=== PATIENT | male | born 1985 | race Caucasian/White ===

== ENCOUNTER 2017-01-25 20:33 | Emergency (ER) | payer OTHER ==
[~2017-01-25] VITALS: Ht 170.2 cm; Wt 78.5 kg
[2017-01-25 20:39] VITALS: Ht 170.2 cm; Wt 78.5 kg
[2017-01-25] MEDS ORDERED: FAMOTIDINE 20 MG INJ IV STA (21:38)
[2017-01-25] MEDS ORDERED: SOD CHLORIDE 0.9% 1,000 ML IV STA (21:38)
[2017-01-25] MEDS ORDERED: ONDANSETRON 4 MG INJ IV STA (21:38)
[2017-01-25] MEDS ORDERED: ACETAMINOPHEN 500 MG TAB PO STA (21:38)
[2017-01-25 22:03] LABS: ADD SCAN DIFF NO
[2017-01-25 22:05] LABS: BASOPHILS % 0.2 % (0.0-2.0); EOSINOPHILS % 0.2 % (0.0-7.0); HEMATOCRIT 45.1 % (42.0-52.0); HEMOGLOBIN 15.6 g/dl (14.0-18.0); LYMPHOCYTES # 0.8 10^3/ul (0.8-2.9); LYMPHOCYTES % 9.4 % (15.0-51.0); MEAN CORPUSCULAR HGB CONC 34.6 g/dl (32.0-37.0); MEAN CORPUSCULAR VOLUME 89.7 fl (82.0-101.0); MEAN PLATELET VOLUME 10.5 fl (7.4-10.4); MONOCYTE # 0.4 10^3/ul (0.3-0.9); MONOCYTES % 5.1 % (0.0-11.0); NEUTROPHIL # 7.2 10^3/ul (1.6-7.5); NEUTROPHILS % 84.5 % (39.0-77.0); PLATELET COUNT 176 10^3/UL (140-415); RED BLOOD COUNT 5.03 10^6/ul (4.70-6.10); WHITE BLOOD COUNT 8.6 10^3/ul (4.8-10.8)
[2017-01-25 22:06] LABS: ADD UMIC NO; URINE BILIRUBIN (Dip) NEGATIVE (NEGATIVE); URINE BLOOD (Dip) NEGATIVE (NEGATIVE); URINE COLOR LT. YELLOW (YELLOW); URINE GLUCOSE (Dip) NEGATIVE (NEGATIVE); URINE KETONES (Dip) NEGATIVE (NEGATIVE); URINE LEUKOCYTE ESTERASE (Dip) NEGATIVE (NEGATIVE); URINE NITRITE (Dip) NEGATIVE (NEGATIVE); URINE TOTAL PROTEIN (Dip) NEGATIVE (NEGATIVE); URINE UROBILINOGEN (Dip) 0.2 E.U./dL (0.1-1.0)
[2017-01-25 22:14] LABS: POTASSIUM 3.6 mmol/L (3.5-5.1)
[2017-01-25 22:16] LABS: ALBUMIN/GLOBULIN RATIO 1.47; BILIRUBIN,INDIRECT 1.2 mg/dl (0-1.1); BILIRUBIN,TOTAL 1.2 mg/dl (0.2-1.3); CREATININE 0.85 mg/dl (0.61-1.24); TOTAL PROTEIN 8.4 g/dl (6.1-8.1)
[2017-01-25 22:17] LABS: CALCIUM 8.9 mg/dl (8.4-10.2)
--- NOTE | 2017-01-25 23:18 | ERD ---
ER Documentation Chief Complaint Date/Time DATE: 01/25/17 TIME: 23:16 Chief Complaint diffuse abd pain, n/v/d started this am HPI Is a 31-year-old male who presents to the emergency department today complaining of abdominal pain. Patient states he has had nausea vomiting and diarrhea that started this morning. Patient states that he had a banana and Pedialyte but he has not been able to keep that down. Patient states he " pooped black". States he took 2 doses of Pepto-Bismol. States he has had 4 bouts of diarrhea since this morning. States he has had sick contacts at work as well as his girlfriend's mother. Denies any fevers or chills. ROS All systems reviewed and are negative except as per history of present illness. Medications Home Meds Active Scripts Acetaminophen* (Tylophen*) 500 Mg Capsule, 1 CAP PO Q6H Y for PAIN AND OR ELEVATED TEMP, #30 CAP Prov:AMARILIS CASTILLO PA-C 01/25/17 Electrolyte,Oral (Pedialyte) 1,000 Ml Solution, 100 ML PO Q6 Y for DIARRHEA, # 1000 ML Prov:AMARILIS CASTILLO PA-C 01/25/17 Ondansetron Hcl* (Zofran*) 4 Mg Tablet, 4 MG PO Q6H for NAUSEA AND/OR VOMITING, #30 TAB Prov:AMARILIS CASTILLO PA-C 01/25/17 PMhx/Soc Medical and Surgical Hx: pt denies Medical Hx, pt denies Surgical Hx Hx Alcohol Use: No Hx Substance Use: No Hx Tobacco Use: No Physical Exam Vitals Vital Signs Date Time Temp Pulse Resp B/P Pulse Ox O2 Delivery O2 Flow Rate FiO2 01/25/17 20:39 99.7 102 20 141/96 97 Physical Exam Const: No acute distress Head: Atraumatic Eyes: Normal Conjunctiva ENT: Normal External Ears, Nose and Mouth. Neck: Full range of motion..~ No meningismus. Resp: Clear to auscultation bilaterally Cardio: Regular rate and rhythm, no murmurs Abd: Soft, epigastric and left lower quadrant pain, non distended. Normal bowel sounds. No right lower quadrant pain. No tenderness McBurney's. Skin: No petechiae or rashes Neur: Awake and alert Psych: Normal Mood and Affect Result Diagram: 01/25/17214901/25/172149 Results 24 hrs Laboratory Tests Test 01/25/17 21:45 01/25/17 21:50 Urine Color LT. YELLOW Urine Clarity CLEAR Urine pH 5.5 Urine Specific Dumas 1.010 Urine Ketones NEGATIVE Urine Nitrite NEGATIVE Urine Bilirubin NEGATIVE Urine Urobilinogen 0.2 E.U./dL Urine Leukocyte Esterase NEGATIVE Urine Hemoglobin NEGATIVE Urine Glucose NEGATIVE% Urine Total Protein NEGATIVE White Blood Count 8.610^3/ul Red Blood Count 5.0310^6/ul Hemoglobin 15.6g/dl Hematocrit 45.1% Mean Corpuscular Volume 89.7fl Mean Corpuscular Hemoglobin 31.0pg Mean Corpuscular Hemoglobin Concent 34.6g/dl Red Cell Distribution Width 13.0% Platelet Count 38115^3/UL Mean Platelet Volume 10.5fl Neutrophils % 84.5% Lymphocytes % 9.4% Monocytes % 5.1% Eosinophils % 0.2% Basophils % 0.2% Nucleated Red Blood Cells % 0.0/100WBC Neutrophils # 7.210^3/ul Lymphocytes # 0.810^3/ul Monocytes # 0.410^3/ul Eosinophils # 0.010^3/ul Basophils # 0.010^3/ul Nucleated Red Blood Cells # 0.010^3/ul Sodium Level 139mmol/L Potassium Level 3.6mmol/L Chloride Level 95mmol/L Carbon Dioxide Level 29mmol/L Anion Gap 19 Blood Urea Nitrogen 12mg/dl Creatinine 0.85mg/dl Glucose Level 102mg/dl Calcium Level 8.9mg/dl Total Bilirubin 1.2mg/dl Direct Bilirubin 0.00mg/dl Indirect Bilirubin 1.2mg/dl Aspartate Amino Transf (AST/SGOT) 52IU/L Alanine Aminotransferase (ALT/SGPT) 128IU/L Alkaline Phosphatase 59IU/L Total Protein 8.4g/dl Albumin 5.0g/dl Globulin 3.40g/dl Albumin/Globulin Ratio 1.47 Lipase 29U/L Current Medications Medications (Trade) Dose Ordered Sig/Chele Route PRN Reason Start Time Stop Time Status Last Admin Dose Admin Sodium Chloride (NS) 1,000 ml @ 1,000 mls/hr Q1H STAT IV 01/25/17 21:38 01/25/17 22:37 DC 4/22/17 21:46 Ondansetron HCl (Zofran Inj) 4 mg ONCE STAT IV 01/25/17 21:38 01/25/17 21:42 DC 01/25/17 21:46 Famotidine (Pepcid Iv) 20 mg ONCE STAT IV 01/25/17 21:38 01/25/17 21:42 DC 01/25/17 21:46 Acetaminophen (Tylenol Tab) 500 mg ONCE STAT PO 01/25/17 21:38 01/25/17 21:42 DC 01/25/17 21:46 DIAGNOSTIC IMAGING REPORT Patient: CHERRI PAREKH : 1985 Age: 31 Sex: M MR #: [id number] DOS: 01/25/172137 Ordering MD: AMARILIS CASTILLO PA-C Location: [facility] Room/Bed: PROCEDURE: CT ABDOMEN/PELVIS WITHOUT CONTRAST CLINICAL INDICATION: 31-year-old male with abdominal pain. TECHNIQUE: The study was performed utilizing a [employer] VCT 64-slice CT scanner. Direct axial sections were obtained through the abdomen and pelvis without the use of intravenous contrast material. Sagittal and coronal reformations were obtained. One or more of the following dose reduction techniques were utilized: automated exposure control, adjustment of the mA and/ or kV according to patient's size or use of iterative reconstruction technique. The images were reviewed on a PACS workstation. CTD/vol = 9.5 mGy; Total Exam DLP = 652.4 mGy-cm. COMPARISON: None. FINDINGS: The lung bases are unremarkable. There is no evidence for significant pleural effusion. The liver has a normal size and contour. There is diffuse decreased density throughout the liver consistent with fatty infiltration without focal areas of abnormal density. No intrahepatic nor extrahepatic biliary ductal dilatation is seen. The gallbladder demonstrates no wall thickening nor pericholecystic fluid. No biliary stones are evident. The pancreas is without areas of abnormal attenuation. The spleen is identified and has a normal size without abnormal density. The adrenal glands are unremarkable. There is a right mid renal cyst measuring approximately 3.2 x 3.2 x 3.3 cm. The left kidney is without abnormal density, calculi or obstruction. No hydroureteronephrosis nor nephroureterolithiasis is evident. The urinary bladder contains urine. There is no evidence for bowel obstruction. The appendix is visualized and is without abnormal thickening or surrounding inflammatory reaction. The prostate is not enlarged. There is no significant free fluid. The aortoiliac vessels are without aneurysmal dilatation. The osseous structures are intact. IMPRESSION: 1. Diffuse fatty infiltration of the liver. 2. Right renal cyst. 3. No CT evidence for appendicitis. .Herrera Robb MD, MD Date Time Electronically viewed and signed by .Herrera Robb MD, on 01/25/2017 23:33 .M/ CC: AMARILIS CASTILLO PA-C Procedures/[facility] This a 31-year-old male who presents to the emergency department today complaining of abdominal pain as well as nausea vomiting and diarrhea that started this morning. On physical exam patient had a significant amount of left lower quadrant pain and therefore did elect to obtain laboratory work as well as imaging. Laboratory work shows no elevated white blood cell count. He is not anemic. Platelets are within normal limits. Chloride is mildly decreased otherwise electrolytes are within normal limits. Glucose is within normal limits. Liver function is elevated. Lipase is within normal limits. UA is negative for infection CT abdomen pelvis noncontrast shows diffuse fatty infiltration of the liver. The gallbladder demonstrates no wall thickening or pericholecystic fluid. There is no biliary stones. There is a right mid renal cyst. Left kidney is without abnormal density, calculi or obstruction. There is no evidence for bowel obstruction. The appendix is visualized and without abnormal thickening or surrounding inflammatory reaction. There is no significant free fluid. I have explained all the results to the patient. Patient is afebrile and otherwise well-appearing. Low suspicion for acute surgical abdomen. Patient symptoms at this time is consistent with vomiting and diarrhea with associated abdominal pain. Patient also has transaminitis. Patient was given IV fluids, Zofran, Tylenol, Pepcid here in the emergency department. I will give him a prescription for Zofran, Pedialyte and Tylenol for home. At this time the patient is stable for discharge and outpatient management. Patient should follow up with their PCP in the next 1-2 days. They may return to the emergency department sooner for any persistent or worsening of symptoms. Patient understood and agreed with the plan. Departure Diagnosis: Primary Impression: Abdominal pain Abdominal location: left lower quadrant Qualified Code: R10.32 - Left lower quadrant pain Additional Impression: Nausea vomiting and diarrhea Condition: AMARILIS Monzon PA-C Jan 25, 2017 23:18
--- NOTE | 2017-01-25 23:33 | RADRPT ---
PROCEDURE: CT ABDOMEN/PELVIS WITHOUT CONTRAST CLINICAL INDICATION: 31-year-old male with abdominal pain. TECHNIQUE: The study was performed utilizing a [employer] VCT 64-slice CT scanner. Direct axia l sections were obtained through the abdomen and pelvis without the use of intravenous contrast mate rial. Sagittal and coronal reformations were obtained. One or more of the following dose reduction t echniques were utilized: automated exposure control, adjustment of the mA and/or kV according to pat ient's size or use of iterative reconstruction technique. The images were reviewed on a PACS workst [employer]. CTD/vol = 9.5 mGy; Total Exam DLP = 652.4 mGy-cm. COMPARISON: None. FINDINGS: The lung bases are unremarkable. There is no evidence for significant pleural effusion. The liver has a normal size and contour. There is diffuse decreased density throughout the liver consistent w ith fatty infiltration without focal areas of abnormal density. No intrahepatic nor extrahepatic zahraa iary ductal dilatation is seen. The gallbladder demonstrates no wall thickening nor pericholecystic fluid. No biliary stones are evident. The pancreas is without areas of abnormal attenuation. The sp amando is identified and has a normal size without abnormal density. The adrenal glands are unremarkab le. There is a right mid renal cyst measuring approximately 3.2 x 3.2 x 3.3 cm. The left kidney is without abnormal density, calculi or obstruction. No hydroureteronephrosis nor nephroureterolithiasi s is evident. The urinary bladder contains urine. There is no evidence for bowel obstruction. The a ppendix is visualized and is without abnormal thickening or surrounding inflammatory reaction. The prostate is not enlarged. There is no significant free fluid. The aortoiliac vessels are without an eurysmal dilatation. The osseous structures are intact. IMPRESSION: 1. Diffuse fatty infiltration of the liver. 2. Right renal cyst. 3. No CT evidence for appendicitis. .Herrera Robb MD, Date Time Electronically viewed and signed by .Herrera Robb MD, MD on 01/25/2017 23:33 .Jordan/
[2017-01-25] MEDS ORDERED: ONDA4TAB8 PO (23:58)
[2017-01-25] MEDS ORDERED: ACET500C5 PO (23:58)
[2017-01-25] MEDS ORDERED: ELEC100080 PO (23:58)
[2017-01-26 00:01] VITALS: BP 133/93; PULSE 94; RESP 16; TEMP 98.9
== END 2017-01-26 00:08 | disposition home or self-care (01) ==
LOC: FTE 20:33
DX: R10.32 Left lower quadrant pain (principal); R11.2 Nausea with vomiting, unspecified; R19.7 Diarrhea, unspecified
CPT/HCPCS: 36415; 74176; 80053; 81003; 83690; 85025; 96374; 96375; J2405; J7030; Z7502; Z7610